=== PATIENT | female | born 1965 | race Caucasian/White ===

== ENCOUNTER 2018-07-29 11:55 | Inpatient (IN) | payer BC ==
[~2018-07-29] VITALS: Ht 152.4 cm; Wt 50.8 kg
[2018-07-29 12:38] LABS: BASOPHILS % (AUTO) 0.6 % (0.0-2.0); EOSINOPHILS # (AUTO) 0.1 K/uL (0.0-0.4); EOSINOPHILS % (AUTO) 0.8 % (0.0-4.0); HEMATOCRIT 41.1 % (36-48); HEMOGLOBIN 13.1 g/dL (12.0-16.0); LYMPHOCYTES # (AUTO) 2.3 K/uL (1.0-5.5); LYMPHOCYTES % (AUTO) 32.9 % (20.5-51.5); MEAN CORPUSCULAR HEMOGLOBIN 30 pg (27-31); MEAN CORPUSCULAR HGB CONC 32 % (32-36); MEAN CORPUSCULAR VOLUME 94 fL (79.0-98.0); MONOCYTES # (AUTO) 0.5 K/uL (0.0-1.0); MONOCYTES % (AUTO) 6.9 % (1.7-9.3); NEUTROPHILS # (AUTO) 4.1 K/uL (1.8-7.7); NEUTROPHILS % (AUTO) 58.8 % (40.0-70.0); PLATELET COUNT (AUTO) 479 K/uL (130-430); RED BLOOD CELL COUNT(AUTO) 4.36 MIL/uL (4.2-6.2); RED CELL DISTRIBUTION WIDTH 12.3 % (9.0-15.0)
[2018-07-29 12:40] LABS: PROTHROMBIN TIME 9.9 SECS (9.5-12.5)
[2018-07-29 12:42] LABS: ALBUMIN 3.5 g/dL (3.4-4.8); CALCIUM 9.4 mg/dL (8.4-11.0); CREATININE 0.58 mg/dL (0.55-1.30); TOTAL BILIRUBIN 0.2 mg/dL (0.0-1.0)
[2018-07-29] MEDS ORDERED: ALBUTEROL SULFATE 0.083% 2.5 MG/3 ML VIAL.NEB INH ONE ×2 (15:22→15:30)
[2018-07-29] MEDS ORDERED: LR 1,000 ML IV SCH (17:11)
[2018-07-29] MEDS ORDERED: fentaNYL CITRATE 250 MCG/5 ML AMP ONE (17:15)
[2018-07-29] MEDS ORDERED: BUPIVACAINE /EPINEPHRINE/PF 0.25% 30 ML VIAL INJ ONE (17:15)
[2018-07-29] MEDS ORDERED: NS IRRIG SOLN 1000 ML IR ONE (17:15)
[2018-07-29] MEDS ORDERED: ONDANSETRON HCL 4 MG/2 ML VIAL ONE (17:15)
[2018-07-29] MEDS ORDERED: LR 1,000 ML IV.SOLN IV ONE (17:15)
[2018-07-29] MEDS ORDERED: PROPOFOL 200MG/ 20ML VIAL (DIPRIVAN) IV ONE (17:15)
[2018-07-29] MEDS ORDERED: MIDAZOLAM HCL 5 MG/ML VIAL (VERSED) IV ONE (17:15)
[2018-07-29] MEDS ORDERED: SEVOFLURANE 15 MIN GAS INH ONE (17:15)
[2018-07-29] MEDS ORDERED: KETOROLAC TROMETHAMINE 30 MG VIAL ONE (17:15)
[2018-07-29] MEDS ORDERED: ROCURONIUM BROMIDE 10 MG/ML (ZEMURON) ONE (17:15)
[2018-07-29] MEDS ORDERED: DEXAMETHASONE SOD PHOSPHATE 4 MG/ML VIAL ONE (17:15)
[2018-07-29] MEDS ORDERED: HYDROmorphone 1 MG INJ. 1 MG/ML AMPUL IVP PRN (17:15)
[2018-07-29] MEDS ORDERED: HYDROmorphone 2 MG/ML VIAL IVP PRN ×2 (17:15)
[2018-07-29] MEDS ORDERED: MEPERIDINE HCL/PF 25 MG/ML DISP.SYRIN IVP PRN (17:15)
[2018-07-29] MEDS ORDERED: NACL 0.9% 1,000 ML IV SCH (17:24)
[2018-07-29] MEDS ORDERED: HYDROmorphone 2 MG/ML VIAL ONE (17:28)
[2018-07-29] MEDS ORDERED: ONDANSETRON HCL 4 MG/2 ML VIAL IVP PRN (17:30)
[2018-07-29] MEDS ORDERED: ACETAMINOPHEN 325 MG TABLET PO PRN (17:30)
[2018-07-29] MEDS: D5/0.45 NS 1,000 ML IV SCH (18:20)
[2018-07-29 20:00] VITALS: BP_SYST 174
[2018-07-29] MEDS ORDERED: MORPHINE 4 MG/ML INJ. SYRINGE IVP PRN (21:00)
[2018-07-29] MEDS ORDERED: IBUPROFEN 400 MG TABLET PO PRN (21:00)
[2018-07-29] MEDS: MORPHINE 4 MG/ML INJ. SYRINGE IVP PRN (21:25)
[2018-07-29] MEDS ORDERED: LANS15CA19 PO (21:29)
[2018-07-29] MEDS ORDERED: ESCI10TA PO (21:35)
[2018-07-29] MEDS ORDERED: TEMAZEPAM 15 MG CAPSULE PO ONE (23:00)
[2018-07-29] MEDS ORDERED: LORazepam 2 MG/ML VIAL IM ONE (23:00)
[2018-07-29] MEDS ORDERED: LORazepam 2 MG/ML VIAL IVP ONE (23:15)
[2018-07-29] MEDS: DOCUSATE SODIUM 100 MG CAPSULE PO SCH (23:18)
[2018-07-29 23:19] VITALS: BP_SYST 132
[2018-07-29 23:27] VITALS: BP_SYST 154
[2018-07-30] MEDS: D5/0.45 NS 1,000 ML IV SCH ×2 (03:24→03:32)
[2018-07-30 06:57] LABS: BASOPHILS % (AUTO) 0.1 % (0.0-2.0); HEMATOCRIT 38.4 % (36-48); HEMOGLOBIN 12.6 g/dL (12.0-16.0); LYMPHOCYTES # (AUTO) 1.2 K/uL (1.0-5.5); LYMPHOCYTES % (AUTO) 15.7 % (20.5-51.5); MEAN CORPUSCULAR HEMOGLOBIN 32 pg (27-31); MEAN CORPUSCULAR HGB CONC 33 % (32-36); MONOCYTES # (AUTO) 0.3 K/uL (0.0-1.0); NEUTROPHILS # (AUTO) 6.2 K/uL (1.8-7.7); NEUTROPHILS % (AUTO) 80.2 % (40.0-70.0); PLATELET COUNT (AUTO) 401 K/uL (130-430); RED CELL DISTRIBUTION WIDTH 12.4 % (9.0-15.0); WHITE BLOOD COUNT (AUTO) 7.7 K/uL (4.8-10.8)
[2018-07-30 07:19] LABS: ALBUMIN 2.7 g/dL (3.4-4.8); CALCIUM 8.7 mg/dL (8.4-11.0); CREATININE 0.43 mg/dL (0.55-1.30); POTASSIUM 3.8 mmol/L (3.5-5.1); TOTAL BILIRUBIN 0.2 mg/dL (0.0-1.0)
[2018-07-30 07:24] LABS: MEAN CORPUSCULAR VOLUME 96 fL (79.0-98.0)
[2018-07-30 07:30] VITALS: BP_SYST 163
[2018-07-30] MEDS: MORPHINE 4 MG/ML INJ. SYRINGE IVP PRN ×2 (08:37→11:23)
[2018-07-30] MEDS ORDERED: CITALOPRAM HYDROBROMIDE 20 MG TABLET PO SCH (09:00)
[2018-07-30] MEDS ORDERED: LEVOFLOXACIN 500 MG/D5W 100 ML IV ONE (09:00)
[2018-07-30] MEDS: DOCUSATE SODIUM 100 MG CAPSULE PO SCH (09:09)
[2018-07-30 12:36] VITALS: BP_SYST 149
[2018-07-30 14:05] VITALS: BP_SYST 149
[2018-07-30] MEDS ORDERED: IBUP-2018 PO (14:11)
[2018-07-30] MEDS ORDERED: DOCU-144 PO (14:12)
[2018-07-30] MEDS ORDERED: TYC3 PO (14:12)
== END 2018-07-30 14:22 | disposition home or self-care (01) | DRG 419 ==
LOC: SDS 11:55 → SMU 11:55 → SDS 12:53 → SMU 20:23
PROVIDERS: ADMIT Surgery; ATTEND Surgery
PROC: 0FT44ZZ Resection of Gallbladder, Percutaneous Endoscopic Approach (ICD-10-PCS; principal; 2018-07-29 15:00)
DX: K82.9 Disease of gallbladder, unspecified (principal)
CPT/HCPCS: 36415; 80053; 85025; 85610-TC; 85730-TC; 87081; 88304; 94640; C1727; J1100; J1170; J1885; J1956; J2060; J2175; J2250; J2270; J2405; J2704; J3010; J3490; J7120; J7613